=== PATIENT | male | born 1985 | race Caucasian/White ===

== ENCOUNTER 2021-08-06 06:15 | Emergency (ER) | payer OTHER ==
[2021-08-06] MEDS ORDERED: Ibuprofen 800 MG TAB ONE (07:10)
== END 2021-08-06 07:30 | disposition home or self-care (01) ==
LOC: NAV ERS 06:15
DX: S92.324A Nondisplaced fracture of second metatarsal bone, right foot, initial encounter for closed fracture (principal); W22.8XXA Striking against or struck by other objects, initial encounter; Y99.0 Civilian activity done for income or pay; Z79.899 Other long term (current) drug therapy; I10 Essential (primary) hypertension